=== PATIENT | female | born 1985 | race African-American/Black ===

== ENCOUNTER 2022-11-01 14:23 | Emergency (ER) | payer OTHER, SELFPAY ==
[2022-11-01 14:24] VITALS: BP 159/104; PULSE 114; RESP 16; TEMP 36.6; O2SAT 98; BMI 34.0
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
[2022-11-01] MEDS: HYDROcodone Bitartrate/Apap 5/325 Tablet PO (14:42)
[2022-11-01] MEDS: Naproxen 500 MG Tablet PO (14:42)
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
== END 2022-11-01 15:25 | disposition home or self-care (01) ==
PROVIDERS: Emergency Provider Emergency Medicine; Visit Provider Emergency Medicine
DX: S16.1XXA Strain of muscle, fascia and tendon at neck level, initial encounter (principal); Y92.410 Unspecified street and highway as the place of occurrence of the external cause; V43.52XA Car driver injured in collision with other type car in traffic accident, initial encounter; S60.222A Contusion of left hand, initial encounter; Z79.3 Long term (current) use of hormonal contraceptives; W22.11XA Striking against or struck by driver side automobile airbag, initial encounter
CPT/HCPCS: 72040; 73130; 99283